=== PATIENT | female | born 1985 | race Caucasian/White ===

== ENCOUNTER 2020-05-03 10:30 | Observation (INO) | payer MEDICAID ==
[~2020-05-03] VITALS: Ht 160 cm; Wt 93.4 kg
[2020-05-03 11:39] LABS: CLARITY URINE CLOUDY (CLEAR); COLOR URINE YELLOW (YELLOW); KETONES URINE 3+ (NEGATIVE); LEUKOCYTE ESTERASE URINE 2+ (NEGATIVE); NITRITE URINE NEGATIVE (NEGATIVE); OCCULT BLOOD URINE NEGATIVE (NEGATIVE); PROTEIN URINE NEGATIVE (NEGATIVE); SPECIFIC GRAVITY URINE 1.017 (1.005-1.030)
[2020-05-03] MEDS ORDERED: ACETAMINOPHEN 500MG TABLET PO ONE (12:15)
[2020-05-03] MEDS ORDERED: CEFAZOLIN 2,000 MG in DEXT 5% WATER 100 ML IV SCH (13:30)
== END 2020-05-03 14:30 | disposition home or self-care (01) ==
LOC: 8 EST A/PP 10:30
PROVIDERS: ADMIT Obstetrics & Gynecology; ATTEND Obstetrics & Gynecology
DX: O26.892 Other specified pregnancy related conditions, second trimester (principal); O99.892 Other specified diseases and conditions complicating childbirth; R10.30 Lower abdominal pain, unspecified; M54.5 Low back pain; Z3A.23 23 weeks gestation of pregnancy
CPT/HCPCS: 59025; 81003; 96361; 96365; G0378; J0690; J7060; 96360; 99281

== ENCOUNTER 2020-07-18 14:19 | Observation (INO) | payer MEDICAID ==
[~2020-07-18] VITALS: Ht 160 cm; Wt 93.4 kg
== END 2020-07-18 15:15 | disposition home or self-care (01) ==
LOC: 8 EST LDRP 14:19
PROVIDERS: ADMIT Obstetrics & Gynecology; ATTEND Obstetrics & Gynecology
DX: O62.9 Abnormality of forces of labor, unspecified (principal); Z3A.34 34 weeks gestation of pregnancy
CPT/HCPCS: 59025; G0378; 99281

== ENCOUNTER 2020-08-01 09:28 | Observation (INO) | payer MEDICAID ==
[~2020-08-01] VITALS: Ht 160 cm; Wt 93.4 kg
[2020-08-01] MEDS ORDERED: LABE100T5 MT (09:56)
[2020-08-01] MEDS ORDERED: NITR-87 MT (09:57)
[2020-08-16] MEDS ORDERED: PNV1TABL76 PO (22:02)
== END 2020-08-01 11:00 | disposition home or self-care (01) ==
LOC: 8 EST LDRP 09:28
PROVIDERS: ADMIT Obstetrics & Gynecology; ATTEND Obstetrics & Gynecology
DX: O26.893 Other specified pregnancy related conditions, third trimester (principal); R10.30 Lower abdominal pain, unspecified; O34.63 Maternal care for abnormality of vagina, third trimester; Z3A.36 36 weeks gestation of pregnancy
CPT/HCPCS: 59025; 76815; 76818; G0378; 99281